=== PATIENT | female | born 1980 | race Caucasian/White ===

== ENCOUNTER → 2016-10-05 | Outpatient (CLI) | payer BC | END | disposition home or self-care (01) | LOC: C.PAPS 14:46 | PROVIDERS: ATTEND Obstetrics & Gynecology | DX: Z01.419 Encounter for gynecological examination (general) (routine) without abnormal findings (principal) ==

== ENCOUNTER → 2016-10-16 | Outpatient (CLI) | payer BC ==
[2016-10-16 09:50] LABS: INSULIN FASTING 4.4 mU/L (3-25); INSULIN LOG 0.6435
[2016-10-16 10:09] LABS: PROLACTIN 15.76 ng/mL
[2016-10-16 10:11] LABS: THYROID STIMULATING HORMONE 1.38 uIu/ml (0.300-4.500)
[2016-10-16 10:35] LABS: CALCULATED INSULIN SENSITIVITY 0.391; GLUCOSE LOG 1.9138
== END | disposition home or self-care (01) ==
LOC: C.LAB1850 07:54
PROVIDERS: ATTEND Obstetrics & Gynecology
DX: N97.9 Female infertility, unspecified (principal)

== ENCOUNTER → 2017-10-22 | Outpatient (CLI) | payer OTHER ==
--- NOTE | 2017-10-22 09:36 | DIAGNOSTIC IMAGING REPORT ---
FIRST TRIMESTER OBSTETRICAL ULTRASOUND CLINICAL HISTORY: ,ESTABLISH DATES COMPARISON STUDY: No previous studies for comparison. FINDINGS: A single alive intrauterine gestation was visualized. The crown-rump rump length measured 11.4 mm corresponding to an estimated postmenstrual age of 7 weeks and 2 days. A 4 mm yolk sac was visualized. cardiac activity was delineated. There is a 2.3 cm left corpus luteum cyst. 2 uterine fibroids are visualized measuring 18 mm and 15 mm respectively. There is a tiny subchorionic hemorrhage. IMPRESSION: 1. Single alive intrauterine gestation. The estimated postmenstrual age of 7 weeks and 2 days 2. 2 uterine fibroids are visualized 3. Tiny subchorionic hemorrhage Electronically signed by: Brayden Macario M.D. 10/22/2017 9:34 AM Dictated Date/Time: 10/22/2017 9:11 AM
== END | disposition home or self-care (01) ==
LOC: C.ULTRBC 08:05
PROVIDERS: ATTEND Family Medicine
DX: Z34.90 Encounter for supervision of normal pregnancy, unspecified, unspecified trimester (principal)

== ENCOUNTER → 2017-10-22 | Outpatient (CLI) | payer OTHER | END | disposition home or self-care (01) | LOC: C.FOODA 13:15 | PROVIDERS: ATTEND Family Medicine | DX: Z34.90 Encounter for supervision of normal pregnancy, unspecified, unspecified trimester (principal) ==

== ENCOUNTER → 2017-11-12 | Outpatient (CLI) | payer OTHER | END | disposition home or self-care (01) | LOC: C.LABSPEC 13:42 | PROVIDERS: ATTEND Obstetrics & Gynecology | DX: O09.511 Supervision of elderly primigravida, first trimester (principal) ==

== ENCOUNTER → 2017-11-19 | Outpatient (CLI) | payer OTHER | END | disposition home or self-care (01) | LOC: C.PAPS 14:02 | PROVIDERS: ATTEND Obstetrics & Gynecology | DX: Z12.4 Encounter for screening for malignant neoplasm of cervix (principal); B97.7 Papillomavirus as the cause of diseases classified elsewhere ==

== ENCOUNTER → 2017-11-19 | Outpatient (CLI) | payer OTHER ==
[2017-11-19 12:24] LABS: HEMATOCRIT 36.7 % (37-47); HEMOGLOBIN 12.5 g/dL (12.0-16.0); MEAN CELL VOLUME 89.5 fL (80-100); MEAN CORPUSCULAR HEMOGLOBIN 30.5 pg (25-34); MEAN CORPUSCULAR HGB CONC 34.1 g/dl (32-36); RED CELL DISTRIBUTION WIDTH CV 13.5 % (11.5-14.5); RED CELL DISTRIBUTION WIDTH SD 43.9 fL (36.4-46.3); WHITE BLOOD COUNT 7.43 K/uL (4.8-10.8)
[2017-11-19 12:54] LABS: BASO % 0.1 %; BASO ABS # 0.01 K/uL (0-0.2); EOS % 1.5 %; EOS ABS # 0.11 K/uL (0-0.5); IG# 0.02 K/uL (0.00-0.02); LYMPH % 33.5 %; LYMPH ABS # 2.49 K/uL (1.2-3.4); MONO % 7.7 %; MONO ABS # 0.57 K/uL (0.11-0.59); NEUT % 56.9 %; NEUT ABS # 4.23 K/uL (1.4-6.5); PLATELET COUNT 123 K/uL (130-400)
== END | disposition home or self-care (01) ==
LOC: C.LAB1850 11:06
PROVIDERS: ATTEND Obstetrics & Gynecology
DX: O09.511 Supervision of elderly primigravida, first trimester (principal)

== ENCOUNTER → 2017-12-18 | Outpatient (CLI) | payer OTHER | END | disposition home or self-care (01) | LOC: C.RAD1850 16:01 | PROVIDERS: ATTEND Obstetrics & Gynecology | DX: O09.512 Supervision of elderly primigravida, second trimester (principal); Z3A.00 Weeks of gestation of pregnancy not specified ==

== ENCOUNTER → 2018-03-25 | Outpatient (CLI) | payer OTHER ==
[2018-03-25 10:09] LABS: HEMATOCRIT 39.3 % (37-47); HEMOGLOBIN 13.3 g/dL (12.0-16.0)
== END | disposition home or self-care (01) ==
LOC: C.LAB1850 09:21
PROVIDERS: ATTEND Obstetrics & Gynecology
DX: O09.513 Supervision of elderly primigravida, third trimester (principal)

== ENCOUNTER 2018-04-20 13:56 | Outpatient (CLI) | payer OTHER ==
[~2018-04-20] VITALS: Ht 170.2 cm; Wt 76.2 kg
[2018-04-20] MEDS ORDERED: NURSING VERBAL MED ORDER ONE (15:00)
[2018-04-20] MEDS ORDERED: LACTATED RINGER'S 1000ML 1,000 ML IV SCH (15:15)
[2018-04-20] MEDS ORDERED: D5W AND LACTATED RINGERS 500 ML IV SCH (16:30)
[2018-04-20 16:53] VITALS: Ht 170.2 cm; Wt 76.2 kg
== END 2018-04-20 16:40 | disposition home or self-care (01) ==
LOC: C.OPB 13:56 → C.LD 13:57 → C.OPB 16:40
PROVIDERS: ATTEND Obstetrics & Gynecology
DX: O46.93 Antepartum hemorrhage, unspecified, third trimester (principal); O09.513 Supervision of elderly primigravida, third trimester; Z3A.33 33 weeks gestation of pregnancy